=== PATIENT | male | born 1950 | race Caucasian/White ===

== ENCOUNTER 2020-10-22 18:48 | Inpatient (IN) ==
[2020-10-22] MEDS ORDERED: XOPENEX 1.25 MG/3 ML NEBULE NEB ONE (19:04)
--- NOTE | 2020-10-22 19:09 | DR.SOBA ---
HPI Time Seen Time Seen by Provider: 10/22/20 19:01 Primary Care Physician Primary Care Physician: HENRY HPI Comment HPI Comment: A 70 y/o male presenting with SOB that has worsened since 12 Noon, he denies associated chest pain. He had a OSMAR + cardioversion done this morning for A. fib. He gave a hx. of CHF and being started on Entresto recently in addition to the Xarelto, Coreg and Lasix. COVID-19 Coronavirus risk:travel/contact w/high risk person: No Has patient experienced Coronavirus symptoms: No Reviewed Nurses Notes Reviewed: Yes Source History Provided: Patient and Family Member Mode of Arrival Mode of Arrival: EMS Context Onset:: At Rest and With Light Exertion History of:: CHF Currently on:: Neither Prehospital Care:: None Modifying Factors Worsens:: Exertion Improves:: Nothing Associated Signs and Symptoms Associated Signs and Symptoms: None If Chest Pain Quality: denies Sharp, Stabbing, Squeezing, Pressure like, Heavy, Crushing, Burning, Aching and Pleuritic If Cough Cough: None PMH PMH Past Medical History: Diabetes Past Medical History Comment: CHF, A. fib Past Surgical History: Yes ROS Review of Systems Constitutional: No Symptoms Reported Eyes: No Symptoms Reported ENTM: No Symptoms Reported Respiratoy: Short of Breath Cardiovascular: No Symptoms Reported Gastrointestinal/Abdominal: No Symptoms Reported Genitourinary: No Symptoms Reported Neurological: No Symptoms Reported Musculoskeletal: No Symptoms Reported Integumentary: No Symptoms Reported Hematologic/Lymphatic: No Symptoms Reported Endocrine: No Symptoms Reported Psychiatric: No Symptoms Reported PE Vital Signs Vitals: Temperature 98.6 F Pulse Rate 95 Respiratory Rate 29 Blood Pressure 144/79 O2 Sat by Pulse Oximetry 94 General Limitations: No Limitations General Appearance: Alert, In No Apparent Distress and Anxious Head Head Exam: Normal Inspection, Atraumatic and Normocephalic Eyes Eye exam: Normal Appearance and EOMI ENT ENT Exam: Normal Exam, Normal Oropharynx, Normal External Ear Exam and Mucous Membranes Moist Neck Neck Exam: Normal Inspection, Full ROM and Trachea Midline Chest Chest Inspection: Normal Inspection and Symmetric Chest Wall Rise Respiratory Respiratory Exam: Bilateral: Rales and Lower: Rales Cardiovascular Cardiovascular Exam: Tachycardia, Normal Heart Sounds, +S1 and +S2 Abdominal Exam Abdominal Exam: Normal Inspection, Normal Bowel Sounds and Soft Extremities Extremities Exam: Edema (2+ in legs/feet) Back Back Exam: Normal Inspection Neurologic Neurological Exam: Alert and Oriented X3 Psychiatric Psychiatric Exam: Normal Affect and Normal Mood Skin Skin Exam: Dry, Intact and Normal Color MDM Differential Diagnosis Differential Diagnosis: CHF, Mycardial Infarction, Pulmonary embolism and Respiratory Failure COURSE Reevaluation 1st: Improved 2nd: Improved (He has diuresed close to 1500 cc of urine now. ) Education/Counseling Education/Counseling: Patient, Family, Education and Counseling Educated On: Treatment, Diagnosis, Prognosis and Needs for Follow Up ROR Labs Reviewed Result Diagrams: 10/22/20 19:24 10/22/20 19:24 Laboratory: WBC 10.1 X10^3/uL (3.6-10.0) H 10/22/20 19:24 RBC 5.04 X10^6/uL (4.7-6.0) 10/22/20 19:24 Hgb 15.1 g/dL (13.5-18.0) 10/22/20 19:24 Hct 45.9 % (42.0-54.0) 10/22/20 19:24 MCV 90.9 fL (80.0-100.0) 10/22/20 19:24 MCH 29.9 pg (27.0-34.0) 10/22/20 19:24 MCHC 32.9 g/dL (33.0-35.0) L 10/22/20 19:24 RDW 15.5 % (11.6-16.5) 10/22/20 19:24 Plt Count 162 X10^3/uL (150.0-450.0) 10/22/20 19:24 MPV 8.8 fL (7.4-11.0) 10/22/20 19:24 Neut % (Auto) 80.8 % (42.0-75.0) H 10/22/20 19:24 Lymph % (Auto) 10.7 % (21.0-51.0) L 10/22/20 19:24 [place] % (Auto) 5.1 % (0.0-13.0) 10/22/20 19:24 Eos % (Auto) 2.4 % (0.9-2.9) 10/22/20 19:24 Baso % (Auto) 1.0 % (0.2-1.0) 10/22/20 19:24 Neut # (Auto) 8.1 x10^3/uL (2.2-4.8) H 10/22/20 19:24 Lymph # (Auto) 1.1 X10^3/uL (1.3-2.9) L 10/22/20 19:24 [place] # (Auto) 0.5 x10^3/uL (0.3-0.8) 10/22/20 19:24 Eos # (Auto) 0.2 x10^3/uL (0.0-0.2) 10/22/20 19:24 Baso # (Auto) 0.1 X10^3/uL (0.0-0.1) 10/22/20 19:24 Absolute Nucleated RBC 0.5 /100WBC 10/22/20 19:24 PT 19.5 SECONDS (11.8-14.3) 10/22/20 19:24 INR Target Range - 10/22/20 19:24 INR 1.74 (0.8-1.3) H 10/22/20 19:24 APTT 34.5 SECONDS (22.9-36.5) 10/22/20 19:24 PTT Comment - 10/22/20 19:24 D-Dimer 2.88 ug/ml (0.0-0.57) H* 10/22/20 19:24 Sodium 143 mmol/L (136-145) 10/22/20 19:24 Corrected Sodium 143 mmol/L (136-145) 10/22/20 19:24 Potassium 4.5 mmol/L (3.5-5.1) 10/22/20 19:24 Chloride 106 mmol/L (98-107) 10/22/20 19:24 Carbon Dioxide 31.0 mmol/L (21-32) 10/22/20 19:24 BUN 15 mg/dL (7-18) 10/22/20 19:24 Creatinine 1.16 mg/dL (0.70-1.30) 10/22/20 19:24 Est GFR (MDRD) Af Amer > 60 (>60) 10/22/20 19:24 Est GFR (MDRD) Non-Af > 60 (>60) 10/22/20 19:24 Glucose 111 mg/dL (65-99) H 10/22/20 19:24 Calcium 9.3 mg/dL (8.5-10.1) 10/22/20 19:24 Corrected Calcium TNP 10/22/20 19:24 Magnesium 2.0 mg/dL (1.7-2.9) 10/22/20 19:24 Total Bilirubin 1.00 mg/dL (0.2-1.0) 10/22/20 19:24 AST 20 Units/L (15-37) 10/22/20 19:24 ALT 30 Units/L (12-78) 10/22/20 19:24 Alkaline Phosphatase 81 Units/L (46-116) 10/22/20 19:24 Creatine Kinase 92 Units/L (39-308) 10/22/20 19:24 CK-MB (CK-2) 2.3 ng/mL (0-4.0) 10/22/20 19:24 CK/CKMB % Calc 2.5 % (<4) 10/22/20 19:24 Troponin I < 0.02 ng/mL (0-1.5) 10/22/20 19:24 Total Protein 7.2 g/dL (6.4-8.2) 10/22/20 19:24 Albumin 3.9 g/dL (3.4-5.0) 10/22/20 19:24 Globulin 3.3 g/dL (2.5-4.5) 10/22/20 19:24 Albumin/Globulin Ratio 1.2 Ratio (1.1-2.1) 10/22/20 19:24 XRAY XRAY Interpreted by: Self X-ray Results: CXR: Cardiomegaly, vascular congestion + volume overload. Radiologist report is pending. EKG Compared to prior EKG Dated: 10/22/20 Rate: 120 [place]: Normal Rhythm: ST Block: LBBB (old) Opioid Opioid Risk Tool Total: 0 Total Score Risk Category: Low Risk Copyright: Marcio ACEVEDO predicting aberrant behaviors Diagnosis Discharge Problem: Pulmonary edema with congestive heart failure Dyspnea Qualifiers: Dyspnea type: acute respiratory distress Qualified Code(s): R06.03 - Acute respiratory distress A-fib Qualifiers: Atrial fibrillation type: unspecified Qualified Code(s): I48.91 - Unspecified atrial fibrillation Diabetes mellitus Qualifiers: Diabetes mellitus type: type 2 Diabetes mellitus long-term insulin use: without long-term use Diabetes mellitus complication status: without complication Qualified Code(s): E11.9 - Type 2 diabetes mellitus without complications ADDITIONAL NOTES Additional Notes Additional Notes: HISTORY SOB. ELEVATED D DIMER STUDY CTA CHEST COMPARISON Chest radiograph, October 22, [address] images of the chest were obtained after the administration of IV contrast utilizing a CTA protocol. 3D MIPS were performed and reviewed for further evaluation. Radiation dose: 773.10 mGy-cm total DLP FINDINGS No significant pericardial effusion. No mediastinal or hilar lymphadenopathy. Mild atherosclerotic changes to the aorta without aneurysm. Bilateral gynecomastia. Pulmonary arteries are normal in caliber without filling defects to suggest a pulmonary embolus. Airways are widely patent. Thyroid appears normal. Moderate to large bilateral pleural effusions with adjacent atelectasis. Smooth interlobular septal thickening throughout both lungs. No focal infiltrate. No pneumothorax. No concerning lung parenchymal lesion identified. Small volume ascites in the upper abdomen, otherwise, the upper abdomen is unremarkable. No acute osseous abnormality. Multilevel [id number] degenerative disc disease without vertebral body height loss. IMPRESSION 1. No pulmonary embolus identified. 2. Findings consistent with acute cardiogenic edema. Electronically signed by: Mckay Villalta (Oct 22, 2020 21:12:27)
--- NOTE | 2020-10-22 19:29 | RAD ---
HISTORYPT WAS SEEN EARLIER TODAY FOR SHORTNESS OF BREATH. HAD A SCHEDULED CARDIOVERSION WITH DR. JAVIER HERE. PT STATES THAT HE HAS CONTINUED TO BE SHORT OF BREATH.STUDYCHEST, 1 VIEWCOMPARISONApril 2018TECHNIQUEChest radiographic imaging, AP portable projection, 1 imageFINDINGSMild cardiomegaly.Diffuse increased interstitial markings.Focal infiltrateNo pleural effusion.No pneumothorax.No acute osseous abnormality.IMPRESSIONFindings are concerning for acute cardiogenic edema.Electronically signed by: Mckay Villalta (Oct 22, 2020 19:27:16)
[2020-10-22] MEDS ORDERED: LASIX IVP ONE ×2 (19:31)
[2020-10-22] MEDS ORDERED: LASIX ONE (19:31)
[2020-10-22 19:33] LABS: BASOPHILS # (AUTO) 0.1 X10^3/uL (0.0-0.1); EOSINOPHILS # (AUTO) 0.2 x10^3/uL (0.0-0.2); EOSINOPHILS % (AUTO) 2.4 % (0.9-2.9); HEMATOCRIT 45.9 % (42.0-54.0); HEMOGLOBIN 15.1 g/dL (13.5-18.0); LYMPHOCYTES # (AUTO) 1.1 X10^3/uL (1.3-2.9); LYMPHOCYTES % (AUTO) 10.7 % (21.0-51.0); MEAN CORPUSCULAR HEMOGLOBIN 29.9 pg (27.0-34.0); MEAN CORPUSCULAR HGB CONC 32.9 g/dL (33.0-35.0); MEAN CORPUSCULAR VOLUME 90.9 fL (80.0-100.0); MEAN PLATELET VOLUME 8.8 fL (7.4-11.0); MONOCYTES # (AUTO) 0.5 x10^3/uL (0.3-0.8); MONOCYTES % (AUTO) 5.1 % (0.0-13.0); NEUTROPHILS # (AUTO) 8.1 x10^3/uL (2.2-4.8); NEUTROPHILS % (AUTO) 80.8 % (42.0-75.0); PLATELET COUNT 162 X10^3/uL (150.0-450.0); RED BLOOD COUNT 5.04 X10^6/uL (4.7-6.0); RED CELL DISTRIBUTION WIDTH 15.5 % (11.6-16.5); WHITE BLOOD COUNT 10.1 X10^3/uL (3.6-10.0)
[2020-10-22 19:54] LABS: ALANINE AMINOTRANSFERASE 30 Units/L (12-78); ALBUMIN 3.9 g/dL (3.4-5.0); ALKALINE PHOSPHATASE 81 Units/L (46-116); ASPARTATE AMINO TRANSFERASE 20 Units/L (15-37); BLOOD UREA NITROGEN 15 mg/dL (7-18); CALCIUM 9.3 mg/dL (8.5-10.1); CHLORIDE 106 mmol/L (98-107); CKMB % 2.5 % (<4); COR NA(FOR HYPERGLY) 143 mmol/L (136-145); CREATINE KINASE 92 Units/L (39-308); CREATINE KINASE MB 2.3 ng/mL (0-4.0); CREATININE 1.16 mg/dL (0.70-1.30); SODIUM 143 mmol/L (136-145); TOTAL PROTEIN 7.2 g/dL (6.4-8.2); TROPONIN I < 0.02 ng/mL (0-1.5); eGFR NON BLACK RACES > 60 (>60)
[2020-10-22] MEDS ORDERED: NS 100 ML IV 100 ML ONE (20:31)
--- NOTE | 2020-10-22 21:16 | CT ---
HISTORYSOB. ELEVATED D DIMERSTUDYCTA CHESTCOMPARISONChest radiograph, October 22, 2020TECHNIQUEAxial CT images of the chest were obtained after the administration of IV contrast utilizing a CTA protocol. 3D MIPS were performed and reviewed for further evaluation.Radiation dose: 773.10 mGy-cm total DLPFINDINGSNo significant pericardial effusion.No mediastinal or hilar lymphadenopathy.Mild atherosclerotic changes to the aorta without aneurysm.Bilateral gynecomastia.Pulmonary arteries are normal in caliber without filling defects to suggest a pulmonary embolus.Airways are widely patent.Thyroid appears normal.Moderate to large bilateral pleural effusions with adjacent atelectasis.Smooth interlobular septal thickening throughout both lungs.No focal infiltrate.No pneumothorax.No concerning lung parenchymal lesion identified.Small volume ascites in the upper abdomen, otherwise, the upper abdomen is unremarkable.No acute osseous abnormality.Multilevel [id number] degenerative disc disease without vertebral body height loss.IMPRESSION1. No pulmonary embolus identified.2. Findings consistent with acute cardiogenic edema.Electronically signed by: Mckay Villalta (Oct 22, 2020 21:12:27)
[2020-10-22] MEDS: LIPITOR TAB 10 MG PO SCH (23:18)
[2020-10-22 23:29] VITALS: BMI 32.8
[2020-10-23] MEDS: PROVENTIL NEB TX 0.083% 2.5MG/ 3ML NEB SCH ×4 (00:23→17:33)
[2020-10-23] MEDS: TYLENOL 325 MG TAB PO PRN ×2 (01:05→14:46)
[2020-10-23] MEDS ORDERED: NEURONTIN CAP 300 MG ONE (05:32)
[2020-10-23] MEDS ORDERED: NEURONTIN CAP 300 MG PO SCH (06:00)
--- NOTE | 2020-10-23 06:03 | RAD ---
HISTORYPULMONARY EDEMASTUDYCHEST, 1 VIEWCOMPARISONNoneTECHNIQUEAP view of the chestFINDINGSCardiac silhouette is mildly enlarged. Mediastinal contours appear stable. Mild worsening in perihilar and lower lung airspace disease. Suspect small pleural effusions. No pneumothorax.IMPRESSIONMild worsening in pulmonary edema.Electronically signed by: Juarez Butts (Oct 23, 2020 06:01:25)
[2020-10-23] MEDS: NEURONTIN CAP 300 MG PO SCH ×3 (06:09→21:04)
[2020-10-23 06:32] LABS: BASOPHILS % (AUTO) 0.5 % (0.2-1.0); EOSINOPHILS # (AUTO) 0.2 x10^3/uL (0.0-0.2); EOSINOPHILS % (AUTO) 1.9 % (0.9-2.9); HEMATOCRIT 40.4 % (42.0-54.0); HEMOGLOBIN 13.5 g/dL (13.5-18.0); LYMPHOCYTES # (AUTO) 0.9 X10^3/uL (1.3-2.9); LYMPHOCYTES % (AUTO) 10.3 % (21.0-51.0); MEAN CORPUSCULAR HGB CONC 33.4 g/dL (33.0-35.0); MEAN CORPUSCULAR VOLUME 89.8 fL (80.0-100.0); MEAN PLATELET VOLUME 9.1 fL (7.4-11.0); MONOCYTES # (AUTO) 0.7 x10^3/uL (0.3-0.8); MONOCYTES % (AUTO) 8.2 % (0.0-13.0); NEUTROPHILS # (AUTO) 6.7 x10^3/uL (2.2-4.8); NEUTROPHILS % (AUTO) 79.1 % (42.0-75.0); PLATELET COUNT 133 X10^3/uL (150.0-450.0); RED BLOOD COUNT 4.49 X10^6/uL (4.7-6.0); RED CELL DISTRIBUTION WIDTH 15.4 % (11.6-16.5); WHITE BLOOD COUNT 8.5 X10^3/uL (3.6-10.0)
[2020-10-23 06:41] LABS: ALANINE AMINOTRANSFERASE 21 Units/L (12-78); ALBUMIN 3.1 g/dL (3.4-5.0); ALKALINE PHOSPHATASE 68 Units/L (46-116); ASPARTATE AMINO TRANSFERASE 14 Units/L (15-37); BLOOD UREA NITROGEN 15 mg/dL (7-18); CALCIUM 9.1 mg/dL (8.5-10.1); CARBON DIOXIDE 31.4 mmol/L (21-32); CHLORIDE 109 mmol/L (98-107); COR CA(FOR HYPOALB) 9.8 mg/dL (8.5-10.1); CREATININE 1.18 mg/dL (0.70-1.30); SODIUM 145 mmol/L (136-145); eGFR NON BLACK RACES > 60 (>60)
[2020-10-23] MEDS ORDERED: SACUBITRIL VALSARTAN PO SCH (09:00)
[2020-10-23] MEDS: ZYLOPRIM PO SCH (09:05)
[2020-10-23] MEDS: COREG TAB 12.5 MG PO SCH ×2 (09:05→20:49)
[2020-10-23] MEDS: XARELTO PO SCH (09:05)
[2020-10-23] MEDS: LASIX IVP SCH ×2 (09:06→20:51)
[2020-10-23] MEDS: ENTRESTO 24/26 MG TAB PO SCH ×2 (10:13→20:50)
--- NOTE | 2020-10-23 11:33 | DR.H&P ---
H&P - History & Physical for Day of: H&P Date: 10/22/20 - Chief Complaint Chief Complaint: SHORTNESS OF BREATH - History of Present Illness History of Present Illness: IS A 70 YEAR OLD PATIENT OF OURS. HE PRESENTED TO THE HOSPITAL WITH COMPLAINTS OF SHORTNESS OF BREATH THAT HAD PROGRESSIVELY GOTTEN WORSE FOR 8-9 HOURS PRIOR TO ARRIVAL. SHORTNESS OF BREATH IS WORSE WITH LIGHT EXERTION. PATIENT REPORTS THAT HE HAS A OSMAR AND CARDIOV ERSION DONE FOR ATRIAL FIBRILLATION EARLIER IN THE MORNING. HE DENIES CHEST PAIN. PMH INCLUDES: CONGESTIVE HEART FAILURE, A-FIB, AND DIABETES. HE REPORTS THAT HE WAS RECENTLY STARTED ON ENTRESTO. THIS IS IN ADDITION TO THE XARELTO, COREG, AND LASIX THAT HE WAS ALREADY TAKING. EXAMINATION REVEALED BILATERAL RALES AND 2+ PITTING EDEMA IN LOWER EXTREMITIES. ON ARRIVAL TO THE ER, VITALS WERE 98.6-106-32-92%-153/100. LABS WERE OBTAINED. ABNROMAL LAB VALUES INCLUDED THE FOLLOWING: WBC 10.1, INR 1.74, D-DIMER 2.88, GLUCOSE 111. AN EKG WAS OBTAINED AND REVEALED: SINUS TACHYCARDIA WITH HR 120. CHEST XRAY WAS OBTAINED AND REVEALED: Findings are concerning for acute cardiogenic edema. A CHEST CTA WAS THEN OBTAINED AND REVEALED: 1. No pulmonary embolus identified. 2. Findings consistent with acute cardiogenic edema. IN THE ER, HE WAS GIVEN A XOPENEX NEB [place] AND LASIX 60MG IV X 1 DOSE. HE WAS ADMITTED TO THE HOSPITAL FOR FURTHER EVALUATION AND TREATMENT OF PULMONARY EDEMA WITH CHF, DYSPNEA, A-FIB, TYPE 2 DIABETES. WE WILL RESTRICT HIS FLUID INTAKE. HE WAS STARTED ON LASIX 60MG IV BID, PROVENTIL NEBS Q6H, ENTRESTO 24/26MG 2 TABS BID, XARELTO 20MG PO DAILY, NEURONTIN 300MG PO TID, COREG 12.5MG PO BID, LIPITOR 10MG PO HS, ZYLOPRIM 300MG PO DAILY, GLUCOPHAGE 500MG PO HS, AND OTBS ACHS. WE WILL OBTAIN AN ECHOCARDIOGRAM TODAY. OTHERWISE, WE PLAN TO FOLLOW UP WITH AM LABS AND CONTINUE TO MONITOR. WE WILL CALL AND LET HIM KNOW THAT PATIENT IS HERE. TIME SPENT ON CLINICAL ASSESSMENT, REVIEWING LABS AND IMAGING, DECISION MAKING, AND DOCUMENTATION GREATER THAN 75 MINUTES. - Past Medical History Past Medical History: CHF, Diabetes Additional Medical History: A-FIB (OSMAR AND CARDIOVERSION TODAY) - Past Surgical History Surgical History: Appendectomy, Ortho Surgery, Other - Family History Family Medical History: Hypertension - Social History Does patient currently use any type of tobacco product: No Have you used tobacco products in the last 12 months: No Type of Tobacco Use: None Does any household member use tobacco: No Alcohol Use: None Drug Use: None - Medications Home Medications: No Known Drug Allergies Allergy (Verified 10/22/20 19:08) CONTINUE taking the following medications allopurinol 300 mg PO DAILY 10/22/20 [History] ergocalciferol (vitamin D2) 1,250 mcg PO QWEEK 10/22/20 [History] furosemide 20 mg PO BID 10/22/20 [History] rivaroxaban [Xarelto] 20 mg PO DAILY 10/22/20 [History] sacubitril-valsartan [Entresto] 1 tab PO BID 10/22/20 [History] New Prescriptions furosemide 40 mg PO BID #60 tab 10/23/20 [Rx] - Review of Systems Constitutional: No Symptoms Reported Eyes: No Symptoms Reported ENT: No Symptoms Reported Respiratory: See HPI, Shortness of Breath, SOB with Excertion Cardiovascular: Edema (LOWER EXTREMITIES ) Gastrointestinal: No Symptoms Reported Genitourinary: No Symptoms Reported Musculoskeletal: No Symptoms Reported Skin: No Symptoms Reported Neurological: No Symptoms Reported - Physical Exam Vital Signs: Temperature 98.0 F Pulse Rate [Left] 91 Pulse Rate 91 Respiratory Rate 18 Blood Pressure [Left Arm] 120/69 Blood Pressure 144/79 O2 Sat by Pulse Oximetry 96 Oriented: Normal Eyes: Normal Ear: Normal Nose: Normal Throat: Normal Respiratory: Rales Throughout Cardiovascular: Edema (BLE 2+ PITTING EDEMA ) : Normal Auscultation: Bowel Sounds: Normal Palpation: Normal Tenderness: Normal Skin: Normal Musculoskeletal: Normal Psychiatric: Normal Mood Description: Calm Affect: Normal Speech Pattern: Clear - Assessment/Plan (1) Pulmonary edema with congestive heart failure Status: Acute Plan: ADMIT, OBTAIN ECHO, SUPPLEMENTAL OXYGEN, LASIX 60MG IV BID, PROVENTIL NEBS Q6H, ENTRESTO 24/26MG 2 TABS BID, XARELTO 20MG PO DAILY, NEURONTIN 300MG PO TID, COREG 12.5MG PO BID, LIPITOR 10MG PO HS, ZYLOPRIM 300MG PO DAILY, GLUCOPHAGE 500MG PO HS, AND OTBS ACHS. (2) Dyspnea Qualifiers: Dyspnea type: acute respiratory distress Qualified Code(s): R06.03 - Acute respiratory distress Status: Acute (3) A-fib Qualifiers: Atrial fibrillation type: unspecified Qualified Code(s): I48.91 - Unspecified atrial fibrillation Status: Chronic (4) Diabetes mellitus Qualifiers: Diabetes mellitus type: type 2 Diabetes mellitus terminal clerk insulin use: without terminal clerk use Diabetes mellitus complication status: without complication Qualified Code(s): E11.9 - Type 2 diabetes mellitus without complications Status: Chronic - Allergies Allergies/Adverse Reactions: Allergies Allergy/AdvReac Type Severity Reaction Status Date / Time No Known Drug Allergies Allergy Verified 10/22/20 19:08
[2020-10-23] MEDS ORDERED: GLUCOPHAGE ONE (20:32)
[2020-10-23] MEDS: LIPITOR TAB 10 MG PO SCH (20:51)
[2020-10-23] MEDS ORDERED: GLUCOPHAGE PO SCH (21:00)
[2020-10-24] MEDS: PROVENTIL NEB TX 0.083% 2.5MG/ 3ML NEB SCH ×3 (00:05→12:18)
--- NOTE | 2020-10-24 05:22 | RAD ---
HISTORYSOBSTUDYCHEST, 1 [id number]/08/2021FINDINGSThe trachea is midline. The cardiac silhouette is mildly enlarged.. Perihilar and lower lung airspace disease unchanged. The upper lung lynne remain clear.. The bony thorax is unremarkable.IMPRESSIONMild cardiomegaly with bilateral perihilar and lower lung field pulmonary edema, unchanged from 10/23/2020.Electronically signed by: Andrew Schmidt (Oct 24, 2020 05:19:45)
[2020-10-24] MEDS: NEURONTIN CAP 300 MG PO SCH (05:42)
[2020-10-24 06:31] LABS: BASOPHILS % (AUTO) 0.4 % (0.2-1.0); EOSINOPHILS # (AUTO) 0.2 x10^3/uL (0.0-0.2); EOSINOPHILS % (AUTO) 2.7 % (0.9-2.9); HEMATOCRIT 43.2 % (42.0-54.0); HEMOGLOBIN 14.4 g/dL (13.5-18.0); LYMPHOCYTES # (AUTO) 1.1 X10^3/uL (1.3-2.9); LYMPHOCYTES % (AUTO) 13.9 % (21.0-51.0); MEAN CORPUSCULAR HGB CONC 33.3 g/dL (33.0-35.0); MEAN CORPUSCULAR VOLUME 89.9 fL (80.0-100.0); MEAN PLATELET VOLUME 8.9 fL (7.4-11.0); MONOCYTES # (AUTO) 0.7 x10^3/uL (0.3-0.8); MONOCYTES % (AUTO) 8.1 % (0.0-13.0); NEUTROPHILS # (AUTO) 6.1 x10^3/uL (2.2-4.8); NEUTROPHILS % (AUTO) 74.9 % (42.0-75.0); PLATELET COUNT 146 X10^3/uL (150.0-450.0); RED CELL DISTRIBUTION WIDTH 15.4 % (11.6-16.5); WHITE BLOOD COUNT 8.2 X10^3/uL (3.6-10.0)
[2020-10-24 06:39] LABS: ALANINE AMINOTRANSFERASE 24 Units/L (12-78); ALBUMIN 3.4 g/dL (3.4-5.0); ALKALINE PHOSPHATASE 75 Units/L (46-116); ASPARTATE AMINO TRANSFERASE 16 Units/L (15-37); BLOOD UREA NITROGEN 17 mg/dL (7-18); CARBON DIOXIDE 33.1 mmol/L (21-32); CHLORIDE 107 mmol/L (98-107); CREATININE 1.11 mg/dL (0.70-1.30); SODIUM 146 mmol/L (136-145); TOTAL PROTEIN 6.9 g/dL (6.4-8.2); eGFR NON BLACK RACES > 60 (>60)
[2020-10-24 07:57] VITALS: BP 120/74
[2020-10-24] MEDS: COREG TAB 12.5 MG PO SCH (09:23)
[2020-10-24] MEDS: ENTRESTO 24/26 MG TAB PO SCH (09:24)
[2020-10-24] MEDS: ZYLOPRIM PO SCH (09:25)
[2020-10-24] MEDS: XARELTO PO SCH (09:25)
[2020-10-24] MEDS: LASIX IVP SCH (09:30)
[2020-10-28] MEDS ORDERED: VITAMIN D (1.25MG) PO SCH (09:00)
== END 2020-10-24 12:05 | disposition home or self-care (01) | DRG 293 ==
LOC: ER 18:48 → MED/SURG 22:08
PROVIDERS: ADMIT Family Medicine; ATTEND Internal Medicine
DX: I50.9 Heart failure, unspecified; I48.91 Unspecified atrial fibrillation; R06.03 Acute respiratory distress; R60.0 Localized edema; E11.65 Type 2 diabetes mellitus with hyperglycemia